=== PATIENT | female | born 1935 | race Caucasian/White ===

== ENCOUNTER 2022-10-18 09:54 | Outpatient (CLI) | payer OTHER, SELFPAY | END 2022-10-18 09:55 | disposition home or self-care (01) | LOC: FRMREF 09:54 | PROVIDERS: PCP Family Medicine; Visit Provider Family Medicine | DX: E03.9 Hypothyroidism, unspecified (principal) | CPT/HCPCS: 84443 ==

== ENCOUNTER 2023-07-30 13:02 | Outpatient (CLI) | payer MEDICARE, SELFPAY | END 2023-07-30 13:03 | disposition home or self-care (01) | LOC: NFLDREF 08-09 07:56 | PROVIDERS: PCP Family Medicine; Referring Provider Family Medicine; Visit Provider Family Medicine | DX: E03.9 Hypothyroidism, unspecified (principal) | CPT/HCPCS: 84443 ==

== ENCOUNTER 2023-10-30 07:42 | Outpatient (CLI) | payer MEDICARE, SELFPAY | END 2023-10-30 07:43 | disposition home or self-care (01) | LOC: NFLDREF 10-31 11:28 | PROVIDERS: PCP Family Medicine; Referring Provider Family Medicine; Visit Provider Family Medicine | DX: E03.9 Hypothyroidism, unspecified (principal) | CPT/HCPCS: 84443 ==

== ENCOUNTER 2023-12-04 07:55 | Outpatient (CLI) | payer MEDICARE, SELFPAY | END 2023-12-04 07:56 | disposition home or self-care (01) | PROVIDERS: PCP Family Medicine; Visit Provider Family Medicine | DX: Z00.00 Encounter for general adult medical examination without abnormal findings (principal); I10 Essential (primary) hypertension; E03.9 Hypothyroidism, unspecified; R73.09 Other abnormal glucose | CPT/HCPCS: 80053; 82043; 82570 ==

== ENCOUNTER 2024-02-11 13:00 | Outpatient (CLI) | payer MEDICARE, SELFPAY | END 2024-02-11 13:01 | disposition home or self-care (01) | LOC: NFLDREF 02-12 07:46 | PROVIDERS: PCP Family Medicine; Referring Provider Family Medicine; Visit Provider Family Medicine | DX: R80.9 Proteinuria, unspecified (principal); R26.81 Unsteadiness on feet | CPT/HCPCS: 82043; 82570 ==

== ENCOUNTER 2024-12-03 14:58 | Outpatient (CLI) | payer MEDICARE, SELFPAY | END 2024-12-03 14:59 | disposition home or self-care (01) | PROVIDERS: PCP Family Medicine; Visit Provider Family Medicine | DX: E03.9 Hypothyroidism, unspecified (principal); I10 Essential (primary) hypertension; E53.8 Deficiency of other specified B group vitamins; R82.90 Unspecified abnormal findings in urine | CPT/HCPCS: 80053; 82607; 84443; 87086 ==